=== PATIENT | male | born 1980 | race Caucasian/White ===

== ENCOUNTER 2019-12-05 10:12 | Outpatient (CLI) | payer OTHER | END 2019-12-05 19:39 | disposition home or self-care (01) | LOC: SCA 10:12 | DX: I10 Essential (primary) hypertension (principal) | CPT/HCPCS: 93306 ==

== ENCOUNTER 2023-08-10 18:35 | Emergency (ER) | payer BC, OTHER ==
[~2023-08-10] VITALS: Ht 185.4 cm; Wt 117.9 kg
[2023-08-10 18:35] VITALS: BP_SYST 157; PULSE 102; RESP 18; TEMP 99.8; O2SAT 98
[2023-08-10] MEDS ORDERED: GLUCAGON,HUMAN RECOMBINANT 1 MG VIAL IVP ONE ×2 (19:15→20:30)
[2023-08-10] MEDS ORDERED: ONDANSETRON HCL 4 MG/2 ML VIAL IVP ONE (19:15)
[2023-08-10 21:15] VITALS: BP_SYST 154; PULSE 98; RESP 18; TEMP 99.1; O2SAT 98
== END 2023-08-10 21:15 | disposition home or self-care (01) ==
LOC: SED 18:35
DX: T18.9XXA Foreign body of alimentary tract, part unspecified, initial encounter (principal); Z79.899 Other long term (current) drug therapy; W44.F3XA Food entering into or through a natural orifice, initial encounter; Y93.89 Activity, other specified; Y92.89 Other specified places as the place of occurrence of the external cause; Y99.8 Other external cause status
CPT/HCPCS: 99284; 96374; 96375; 96376; J1610; J2405